=== PATIENT | female | born 2000 | race Caucasian/White ===

== ENCOUNTER 2025-03-05 12:29 | Emergency (ER) | payer SELFPAY ==
--- NOTE | ~2025-03-05 | XR_ITS ---
X-rays left foot Indication: Injury, lateral pain and swelling Comparison: None Technique: 3 views left foot Findings/Impression: 1. No fracture or dislocation left foot. Reviewed, dictated and finalized at location R.
[2025-03-05 12:29] VITALS: BP 118/79; PULSE 92; RESP 18; TEMP 37.2; O2SAT 98
--- NOTE | 2025-03-05 12:41 | ED.LOWEXIN ---
HPI - Extremity Injury (Lower) General Chief Complaint: Extremity Injury, Lower Stated Complaint: foot pain Time Seen by Provider: 03/05/25 12:39 Source: patient Mode of arrival: ambulatory Limitations: no limitations History of Present Illness HPI Narrative: Patient is a 24-year-old female with a left foot injury after taking a trailer last night accidentally. She has pain on the top of the foot with ecchymosis. No ankle pain. MD complaint: foot injury (Left) Onset (ago): day(s) (2) Type of Injury: blunt Place: home and street/outdoors Severity: moderate Severity scale (1-10): 5 Relieving factors: nothing Exacerbating factors: weight bearing, movement and palpation Context: direct blow Associated symptoms: swelling, tingling and able to partially bear weight Other symptoms: none Treatments prior to arrival: cold therapy Related Data Allergies Allergy/AdvReac Type Severity Reaction Status Date / Time Sulfa (Sulfonamide Allergy Intermediate Unknown Verified 03/05/25 12:38 Antibiotics) Exam Const: General: healthy appearing Nutritional Appearance: well nourished Orientation/consciousness: patient oriented x3 HENMT: Head: normal to inspection Ears: external ears normal Face/Nose/Sinus: Normal external nose present Eyes: Conjunctivae: conjunctivae normal Pupils: Equal, round and reactive pupils present EOM: EOMs intact bilaterally Neck: Neck: normal visual inspection Chest: Chest palpation & inspection: normal inspection of the chest Resp: Effort & Inspection: normal respiratory effort and not labored Auscultation: clear to auscultation bilaterally and no crackles Cardio: Rate: regular rate Rhythm: regular rhythm Heart sounds: no murmurs GI: Inspection: non-distended GI Palp: Yes Soft to palpation and No Tenderness to palpation present (GI) Auscultation: normal bowel sounds : General: Yes bladder normal to palpation Back/Spine/Pelvis: Back: no CVA tenderness Skin: General skin exam: normal color Rashes: no rashes Wounds: no wounds Neuro: General: patient oriented x3, moves all extremities and no meningeal signs Cranial nerves: Yes Nystagmus not present Speech: normal speech Gait exam (Neuro): Normal gait present Extrem: General: normal to inspection Psych: Mental Status: mental status grossly normal Affect: normal affect Attitude: cooperative Course Vital Signs Vital signs: Vital Signs Temperature 37.2 C 03/05/25 12:29 Pulse Rate 92 03/05/25 12:29 Respiratory Rate 18 03/05/25 12:29 Blood Pressure 118/79 03/05/25 12:29 Pulse Oximetry 98 03/05/25 12:29 Oxygen Delivery Room Air 03/05/25 12:29 Temperature 37.2 C 03/05/25 12:29 Pulse Rate 92 03/05/25 12:29 Respiratory Rate 18 03/05/25 12:29 Blood Pressure 118/79 03/05/25 12:29 Pulse Oximetry 98 03/05/25 12:29 Oxygen Delivery Room Air 03/05/25 12:29 MDM - Extremity Injury (Lower) MDM Narrative Medical decision making narrative: Patient is a 24-year-old female with left foot injury last night. X-ray. Toradol. Imaging Data Attestation: I personally reviewed and interpreted this imaging study as follows: Radiologist's impression: X-ray left foot shows no acute findings Discharge Plan Discharge Clinical Impression: Sprain of foot, left Qualifiers: Encounter type: initial encounter Qualified Code(s): S93.602A - Unspecified sprain of left foot, initial encounter Contusion of foot, left Qualifiers: Encounter type: initial encounter Qualified Code(s): S90.32XA - Contusion of left foot, initial encounter Patient Disposition: Home Condition: Stable Instructions: Foot Contusion (ED), Foot Sprain (ED) Patient Language: [place]i Prescriptions: New tramadol 50 mg tablet 50 mg PO Q8H PRN (Reason: pain) Qty: 20 0RF Rx Instructions: 1-2 tabs per dose Follow-up/Referrals: Sudhakar Gibbons MD [Physician, Internal Medicine] Time of Disposition: 13:01
[2025-03-05] MEDS: KETOROLAC (*BKC) 60 MG/2 ML VIAL IM (12:59)
== END 2025-03-05 13:30 | disposition home or self-care (01) ==
LOC: CHSED 13:04
PROVIDERS: Emergency Provider Emergency Medicine; Referring Provider Internal Medicine
DX: S90.32XA Contusion of left foot, initial encounter (principal); S93.602A Unspecified sprain of left foot, initial encounter; X58.XXXA Exposure to other specified factors, initial encounter
CPT/HCPCS: 73630; 96372; 99283; J1885